=== PATIENT | female | born 2000 | race Hispanic/Latino ===

== ENCOUNTER 2023-01-07 05:57 | Day surgery (SDC) | payer OTHER ==
[2023-01-01 10:01] LABS: BASOPHILS % (AUTO) 0.4 % (0.0-5.0); EOSINOPHILS % (AUTO) 0.7 % (0.0-8.0); HEMATOCRIT 40.2 % (36-48); LYMPHOCYTES % (AUTO) 31.7 % (21.0-51.0); MEAN CORPUSCULAR HEMOGLOBIN 26.4 pg (27.0-33.0); MEAN CORPUSCULAR HGB CONC 32.1 g/dL (32.0-36.0); MEAN CORPUSCULAR VOLUME 82.2 fL (79-99); MONOCYTES % (AUTO) 8.1 % (3.0-13.0); PLATELET COUNT (AUTO) 256 K/uL (130-400); RED BLOOD CELL COUNT(AUTO) 4.89 MIL/uL (4.00-5.50); RED CELL DISTRIBUTION WIDTH 13.2 % (11.0-15.5); WHITE BLOOD COUNT (AUTO) 6.8 K/uL (4.8-10.8)
[2023-01-01 10:12] LABS: CREATININE 0.6 mg/dL (0.5-1.5); POTASSIUM 4.2 mmol/L (3.5-5.1)
[2023-01-01 10:29] VITALS: BP 108/77
[2023-01-07] VITALS (18 sets, daily range): BP systolic 86–119; BP diastolic 38–77
[~2023-01-07] VITALS: Ht 167.6 cm; Wt 85.7 kg
[~2023-01-07 05:57] MED LIST: LACTATED RINGERS 1000ML 1,000 ML IV SCH
[2023-01-07] MEDS ORDERED: CEFAZOLIN SODIUM 1 GM VIAL IVPB PRN (06:00)
[2023-01-07] MEDS ORDERED: CEFAZOLIN SODIUM 2 GM VIAL ONE (06:30)
[2023-01-07] MEDS ORDERED: ONDANSETRON 4MG INJ ONE (06:46)
[2023-01-07] MEDS ORDERED: LIDOCAINE PF 100MG/5ML (2%) SYRINGE 5ML ONE (06:46)
[2023-01-07] MEDS ORDERED: PROPOFOL 10 MG/ML 20ML VIAL IV ONE (06:46)
[2023-01-07] MEDS ORDERED: MIDAZOLAM HCL 1 MG/ML 2ML VIAL ONE (06:46)
[2023-01-07] MEDS ORDERED: DEXAMETHASONE SOD PHOSPHATE 10MG/ML 1ML VIAL ONE (06:46)
[2023-01-07] MEDS ORDERED: ROCURONIUM 10MG/1ML SYR 10 MG/ML ML ONE (06:46)
[2023-01-07] MEDS ORDERED: FENTANYL CITRATE PF 50 MCG/1 ML 2ML VIAL ONE (06:47)
[2023-01-07] MEDS ORDERED: BUPIVACAINE/PF 0.5% 10ML VIAL ONE ×2 (07:52→08:38)
[2023-01-07] MEDS ORDERED: MEPERIDINE-PF 25 MG/ML SYG ONE ×2 (08:10→09:19)
[2023-01-07] MEDS ORDERED: NEOSTIGMINE 5MG/5ML SYR IV ONE (08:47)
[2023-01-07] MEDS ORDERED: GLYCOPYRROLATE 1 MG/5 ML SYRINGE ONE (08:47)
[2023-01-07] MEDS ORDERED: PHENYLEPHRINE HCL 10 MG/ML 1ML VIAL IV ONE (08:59)
== END 2023-01-07 11:40 | disposition home or self-care (01) ==
LOC: DAH 05:57
PROVIDERS: ATTEND Surgery
DX: L05.01 Pilonidal cyst with abscess (principal); Z20.822 Contact with and (suspected) exposure to COVID-19; E66.01 Morbid (severe) obesity due to excess calories; Z83.3 Family history of diabetes mellitus; Z98.890 Other specified postprocedural states; Z68.30 Body mass index [BMI] 30.0-30.9, adult
CPT/HCPCS: 80048; 84703; 85025; 87426; 36415; 11772; 14301; 14302; 81025; A6260; A4663; J7120 ×2; A4606; J3010; J3490 ×3; J1100; J2710; J2001; J2250; J2704; J2405; J2175 ×2; J2370; J0690; A4649; A4215; A4223; A4222; A4221